=== PATIENT | female | born 2000 | race Asian ===

== ENCOUNTER 2023-04-07 20:53 | Emergency (ER) | payer OTHER ==
[~2023-04-07] VITALS: Ht 165.1 cm; Wt 135.0 kg
[2023-04-07 22:14] LABS: Urine Bacteria NONE SEEN /hpf (None Seen); Urine Blood 2+ /uL (Negative); Urine Specific Gravity 1.016 (1.001-1.035); Urine WBC 194 /hpf (0 - 5)
[2023-04-07] MEDS ORDERED: ACET-1158 PO (23:03)
[2023-04-07] MEDS ORDERED: SULF800T7 PO (23:03)
[2023-04-07] MEDS ORDERED: cefTRIAXone SOD 1,000 MG VL IM ONE (23:15)
[2023-04-08 00:44] VITALS: BP 125/86
== END 2023-04-08 00:49 | disposition home or self-care (01) ==
LOC: ER 20:55
DX: N39.0 Urinary tract infection, site not specified (principal); Z79.899 Other long term (current) drug therapy
CPT/HCPCS: 81001; 81025; 96372; 99283; J0696